=== PATIENT | female | born 1950 | race Caucasian/White ===

== ENCOUNTER → 2017-09-20 | Outpatient (CLI) | payer MEDICARE, OTHER ==
[~2017-09-20] MED LIST: ACETAMINOPHEN; BUTALBITAL; CAFFEINE; DULA1.5P SQ; DULO60CA63 PO; LOSA100T29 PO; METF500T6 PO; PRAM1.5T25 PO; PREG75 PO; PROP40TA7 PO; SIMV10TA6 PO
== END | disposition home or self-care (01) ==
LOC: RAH 09:16
PROVIDERS: ATTEND Family Medicine
DX: M79.662 Pain in left lower leg (principal)
CPT/HCPCS: 93971